=== PATIENT | female | born 1965 | race Caucasian/White ===

== ENCOUNTER 2018-05-17 08:25 | Emergency (ER) | payer OTHER ==
[~2018-05-17] VITALS: Ht 172.7 cm; Wt 104.3 kg
[~2018-05-17 08:25] MED LIST: AMITRIPTYLINE H25 M3; AMITRIPTYLINE H25 M3 PO; APAP650 PO; ASPIR 8181 MG PO; ATORVASTATIN CA40 MG PO; BUSPAR PO; BUSPIRONE HCL10 MG PO; CELEXA PO; CLONAZEPAM 0.50.5 M1 PO; COREG3.125 MG PO; DOXYCYCLINE 10100 MG PO; EFFEXOR 5050 MG/1 T1 PO; EFFIENT10 MG PO; ESTROVEN MOOD400 MCG PO; FLEXERIL PO; FOLIC ACID 40400 MCG PO; FOLIC ACID PO; IBUPROFEN 800800 MG PO; LEVOTHYROXIN0.088 MG PO; LEVOTHYROXIN0.125 M1 PO; LISINOPRIL5 MG PO; METHOTREXATE PO; NORFLEX100 MG PO; PERCOCET 5-3251 EACH PO; PREDNISONE 10 M10 M1 PO; PREDNISONE10 MG PO; PROTONIX40 M4 PO; RHEUMATREX2.5 MG PO; ULTRACET TABLET1 TAB PO; [UNRECOGNIZED DRUG - OTHER] IM
[2018-05-17 08:36] VITALS: BP 138/82
[2018-05-17] MEDS ORDERED: LISINOPRIL5 MG PO (08:38)
[2018-05-17] MEDS ORDERED: PREDNISONE 5 MG5 M1 PO (08:38)
[2018-05-17] MEDS ORDERED: TRAMADOL 50 MG50 MG PO (08:39)
[2018-05-17] MEDS ORDERED: KEFLEX500 M1 PO (08:39)
[2018-05-17] MEDS ORDERED: ACYCLOVIR 800800 MG PO (08:45)
[2018-05-17] MEDS ORDERED: PERCOCET 5-3251 EACH PO (08:45)
[2018-05-17] MEDS ORDERED: BACTRIM DS TAB1 EACH PO (08:45)
== END 2018-05-17 08:59 | disposition home or self-care (01) ==
LOC: M.ERS 08:25
DX: B02.9 Zoster without complications (principal); I10 Essential (primary) hypertension; E78.00 Pure hypercholesterolemia, unspecified; F32.9 Major depressive disorder, single episode, unspecified; F41.9 Anxiety disorder, unspecified; M06.9 Rheumatoid arthritis, unspecified; M79.7 Fibromyalgia; E03.9 Hypothyroidism, unspecified; Z87.01 Personal history of pneumonia (recurrent)